=== PATIENT | female | born 1945 | race African-American/Black ===

== ENCOUNTER 2017-01-08 17:51 | Emergency (ER) | payer OTHER ==
[~2017-01-08] VITALS: Ht 167.6 cm; Wt 139.7 kg
[~2017-01-08 17:51] MED LIST: ACLI400A2 IH; ALPR0.5T6 PO; AMLO2.5T PO; ASPI-143 PO; ATEN50TA PO; CALC650T6 PO; CITA20SO PO; DABI75CA3 PO; FLUT1DIS5 IH; INSU100C SQ; INSU100V8 SQ; LOVA20TA2 PO; METF-620 PO; MULT-245 PO; NAPR500T8 PO; OLME20TA19 PO; PANT40TA5 PO; TRAZ100T12 PO
[2017-01-08 19:36] LABS: BASO # 0.1 x10^3/uL (0.0-0.2); BASO % 1 % (0-3); EOS % 1 % (0-3); HEMATOCRIT 39.6 % (36.0-47.0); HEMOGLOBIN 13.4 g/dL (12.0-15.5); LYMPH # 2.9 x10^3/uL (1.0-4.8); LYMPH % 36 % (24-48); MEAN CORPUSCULAR HEMOGLOBIN 29 pg (25-35); MEAN CORPUSCULAR HGB CONC 34 g/dL (31-37); MEAN CORPUSCULAR VOLUME 86 fL (79-100); MONO % 7 % (0-9); NEUT % 54 % (31-73); PLATELET COUNT 258 x10^3/uL (140-400); RED CELL DISTRIBUTION WIDTH 14.4 % (11.5-14.5); WHITE BLOOD COUNT 8.1 x10^3/uL (4.0-11.0)
--- NOTE | 2017-01-08 19:40 | PHYS DOC ---
Past Medical History Past Medical History: Cancer, COPD, Diabetes-Type II, High Cholesterol, Hypertension, [place], Other Additional Past Medical Histor: LYPHEDEMA, BREAST, INSOMNIA Past Surgical History: Appendectomy, Cholecystectomy, Hysterectomy, Other Additional Past Surgical Histo: PARTIAL, STENTS, CATARACT, RT MASECTOMY Alcohol Use: Rarely Drug Use: None Adult General Chief Complaint Chief Complaint: CHEST PAIN HPI HPI Patient is a 71 year old AA female with history of CAD, hypertension, dyslipidemia, diabetes who presents with intermittent left parasternal chest pain radiating to her back since last evening. Symptoms are worse with exertion and at night. They're associated with nausea but not shortness of breath or sweats. Symptoms are improved with nitroglycerin but have not completely resolved. Symptoms are currently low-grade described 1 or 2 out of 10. Patient denies abdominal pain, vomiting, flank pain, leg pain and swelling. No history of DVT or PE. Patient did not take her medications today because she did not feel well. Patient's clinical lab scientist is Dr. Bone who practices at [place]. Patient states she is scheduled for a chemical stress test on Wednesday. Review of Systems Review of Systems ROS as per HPI. Current Medications Current Medications Current Medications Medications (Trade) Dose Ordered Sig/Silver Start Time Stop Time Status Last Admin Dose Admin Aspirin (Children'S Aspirin) 324 mg 1X ONCE 01/08/17 19:45 01/08/17 19:46 DC 01/08/17 19:51 324 MG Famotidine (Pepcid) 20 mg 1X ONCE 01/08/17 19:45 01/08/17 19:46 DC 01/08/17 19:51 20 MG Nitroglycerin (Nitrostat) 0.4 mg PRN Q5MIN PRN 01/08/17 19:45 01/09/17 00:14 DC 01/08/17 19:53 0.4 MG Sodium Chloride 1,000 ml @ 1,000 mls/hr 1X ONCE 01/08/17 20:15 01/08/17 21:14 DC 01/08/17 20:24 1,000 MLS/HR Allergies Allergies Allergies Coded Allergies Type Severity Reaction Last Updated Verified No Known Drug Allergies 02/21/15 No Physical Exam Physical Exam Constitutional: Well developed, well nourished, no acute distress, non-toxic appearance. [] HENT: Normocephalic, atraumatic, bilateral external ears normal, oropharynx moist, no oral exudates, nose normal. [] Eyes: PERRLA, EOMI, conjunctiva normal, no discharge. [] Neck: Normal range of motion, no tenderness, supple, no stridor. [] Cardiovascular:Heart rate regular rhythm, no murmur, 1+ peripheral edema [] Lungs & Thorax: Bilateral breath sounds clear to auscultation [] Abdomen: Bowel sounds normal, soft, no tenderness, no masses, no pulsatile masses. [] Skin: Warm, dry. [] Back: No tenderness, no CVA tenderness. [] Extremities: No tenderness, no cyanosis, no clubbing, ROM intact, no edema. [] Neurologic: Alert and oriented, normal motor function, normal sensory function, no focal deficits noted. [] Psychologic: Affect normal, judgement normal, mood normal. [] Current Patient Data Vital Signs Vital Signs Date Time Temp Pulse Resp B/P (MAP) Pulse Ox O2 Delivery O2 Flow Rate FiO2 01/08/17 23:30 72 16 149/70 (96) 96 Room Air 01/08/17 20:48 2.0 01/08/17 18:35 98.3 98.3 Lab Values Laboratory Tests Test 01/08/17 18:35 White Blood Count 8.1 x10^3/uL (4.0-11.0) Red Blood Count 4.60 x10^6/uL (3.50-5.40) Hemoglobin 13.4 g/dL (12.0-15.5) Hematocrit 39.6 % (36.0-47.0) Mean Corpuscular Volume 86 fL (79-100) Mean Corpuscular Hemoglobin 29 pg (25-35) Mean Corpuscular Hemoglobin Concent 34 g/dL (31-37) Red Cell Distribution Width 14.4 % (11.5-14.5) Platelet Count 258 x10^3/uL (140-400) Neutrophils (%) (Auto) 54 % (31-73) Lymphocytes (%) (Auto) 36 % (24-48) Monocytes (%) (Auto) 7 % (0-9) Eosinophils (%) (Auto) 1 % (0-3) Basophils (%) (Auto) 1 % (0-3) Neutrophils # (Auto) 4.4 x10^3uL (1.8-7.7) Lymphocytes # (Auto) 2.9 x10^3/uL (1.0-4.8) Monocytes # (Auto) 0.6 x10^3/uL (0.0-1.1) Eosinophils # (Auto) 0.1 x10^3/uL (0.0-0.7) Basophils # (Auto) 0.1 x10^3/uL (0.0-0.2) D-Dimer (Jessa) 0.32 ug/mlFEU (0.00-0.50) Sodium Level 141 mmol/L (136-145) Potassium Level 3.5 mmol/L (3.5-5.1) Chloride Level 102 mmol/L (98-107) Carbon Dioxide Level 32 mmol/L (21-32) Anion Gap 7 (6-14) Blood Urea Nitrogen 9 mg/dL (7-20) Creatinine 0.7 mg/dL (0.6-1.0) Estimated GFR (Cockcroft-Gault) 100.4 BUN/Creatinine Ratio 13 (6-20) Glucose Level 143 mg/dL (70-99) H Calcium Level 9.4 mg/dL (8.5-10.1) Total Bilirubin 0.5 mg/dL (0.2-1.0) Aspartate Amino Transferase (AST) 30 U/L (15-37) Alanine Aminotransferase (ALT) 38 U/L (14-59) Alkaline Phosphatase 86 U/L (46-116) Troponin I Quantitative < 0.017 ng/mL (0.000-0.055) Total Protein 7.2 g/dL (6.4-8.2) Albumin 3.6 g/dL (3.4-5.0) Albumin/Globulin Ratio 1.0 (1.0-1.7) Lipase 127 U/L (73-393) Laboratory Tests 01/08/17 18:35 Laboratory Tests 01/08/17 18:35 EKG EKG [] Radiology/Procedures Radiology/Procedures [Chest x-ray: No acute cardiopulmonary disease] Course & Med Decision Making Course & Med Decision Making Pertinent Labs and Imaging studies reviewed. (See chart for details) Patient is high risk for acute coronary syndrome. Patient offered admission for evaluation of chest pain cardiac stimulation. Patient declines admission. She states she is symptom-free and prefers to follow-up with her outpatient clinical lab scientist with scheduled stress test is Wednesday. She verbalizes understanding that she has had an increased risk of delayed diagnosis, treatment , permanent disability and . She agrees to return to the ED should her chest pain return. Dragon Disclaimer Dragon Disclaimer This electronic medical record was generated, in whole or in part, using a voice recognition dictation system. Departure Departure Impression: Primary Impression: Chest pain Disposition: HOME, SELF-CARE Condition: STABLE Referrals: KODAK POLK MD (PCP) Patient Instructions: Chest Pain (Nonspecific), [id number] Additional Instructions: You were evaluated in the emergency department for chest pain. EKG, lab work and chest x-ray were performed and are normal. The exact cause of your symptoms has not been determined but may be heart related. Please take daily aspirin and continue all your home medications. Follow-up with your clinical lab scientist for outpatient stress test as scheduled on Wednesday. In the meantime, if you develop new or worsening symptoms, return to emergency department. NADIA LOERA DO Jan 08, 2017 19:39
[2017-01-08] MEDS ORDERED: NITROGLYCERIN SUBLINGUAL 0.4 MG BOTTLE OF 25. SL PRN (19:45)
[2017-01-08] MEDS ORDERED: FAMOTIDINE 20 MG/2 ML VIAL IVP ONE (19:45)
[2017-01-08] MEDS ORDERED: ASPIRIN CHEWABLE 81 MG TABLET. PO ONE (19:45)
[2017-01-08 19:46] LABS: CALCIUM 9.4 mg/dL (8.5-10.1); CREATININE 0.7 mg/dL (0.6-1.0); GFR 100.4; POTASSIUM 3.5 mmol/L (3.5-5.1)
[2017-01-08 19:52] LABS: ALBUMIN 3.6 g/dL (3.4-5.0); TOTAL BILIRUBIN 0.5 mg/dL (0.2-1.0); TOTAL PROTEIN 7.2 g/dL (6.4-8.2)
[2017-01-08] MEDS ORDERED: IV NORMAL SALINE 1000ML BAG 1,000 ML IV ONE (20:15)
[2017-01-08 23:30] VITALS: BP 149/70
--- NOTE | 2017-01-09 08:49 | RAD ---
Examination: Single frontal view the chest History: History shortness of breath, chest pain Comparison: 03/12/2013 Findings: Low lung volumes and technique accentuates heart size and pulmonary vascularity. Mild linear bibasal lung atelectasis again identified. Impression: No acute cardiopulmonary findings.
--- NOTE | 2017-01-09 12:09 | EKG ---
[facility] [address] [place] [address] Test Date: 2017-01-08 Test Time: 17:57:19 Pat Name: AALIYAH PERES Department: Room: Gender: F Kitchen And Bath Designer: : 1945 Requested By: NADIA LOERA Order Number: [id number] Reading MD: Raphael Hightower Measurements Intervals Gladys Rate: 86 P: 90 VT: 178 QRS: 5 QRSD: 80 T: 54 QT: 358 QTc: 431 Interpretive Statements SINUS RHYTHM Electronically Signed On 01-12-2017 9:53:57 CDT by Raphael Hightower
== END 2017-01-08 23:32 | disposition home or self-care (01) ==
LOC: ER 17:51
DX: R07.89 Other chest pain (principal); R11.0 Nausea; J44.9 Chronic obstructive pulmonary disease, unspecified; E11.9 Type 2 diabetes mellitus without complications; E78.00 Pure hypercholesterolemia, unspecified; I25.2 Old myocardial infarction; I25.10 Atherosclerotic heart disease of native coronary artery without angina pectoris; I10 Essential (primary) hypertension; E78.5 Hyperlipidemia, unspecified
CPT/HCPCS: 36415; 71010; 80053; 83690; 84484; 85025; 85379; 93005; 96361; 96374; 99285; J7030; S0028

== ENCOUNTER → 2017-01-29 | Outpatient (CLI) | payer OTHER ==
[2017-01-08 23:30] VITALS: BP 149/70
--- NOTE | 2017-01-29 11:58 | RAD ---
Postmenopausal transabdominal and endovaginal pelvic ultrasound for pelvic pain. Patient has a history of a hysterectomy in 1979, and by history retains one ovary. Technique: Real-time grayscale ultrasound images of the pelvis are performed from both the transabdominal and endovaginal pelvic approach. The uterus is nonvisualized consistent with history of hysterectomy. No ovarian tissue is identified, though on endovaginal interrogation of the right adnexa, there is a 9 mm anechoic simple appearing cyst, which may be related to the right ovary. Given its small size and simple sonographic appearance, this is of doubtful clinical significance. No adnexal masses are seen, and there is no free fluid within the cul-de-sac. Impression: 1. Unremarkable postmenopausal, post hysterectomy pelvic ultrasound.
== END | disposition home or self-care (01) ==
LOC: US 08:04
PROVIDERS: ATTEND Physician Assistant
DX: R10.2 Pelvic and perineal pain (principal); Z90.710 Acquired absence of both cervix and uterus; N95.9 Unspecified menopausal and perimenopausal disorder
CPT/HCPCS: 76830; 76856

== ENCOUNTER → 2017-05-07 | Day surgery (SDC) | payer OTHER ==
[~2017-05-07] MED LIST changes: -ACLI400A2 IH; -ALPR0.5T6 PO; -AMLO2.5T PO; -ASPI-143 PO; -ATEN50TA PO; -CALC650T6 PO; -CITA20SO PO; -DABI75CA3 PO; -FLUT1DIS5 IH; -INSU100C SQ; -INSU100V8 SQ; +LIDOCAINE 1% PF 2 ML VIAL. ID; +LIDOCAINE 2% PF Vial for OR 5 ML VIAL.; -LOVA20TA2 PO; -METF-620 PO; +MIDAZOLAM HCL/PF 2 MG/2 ML VIAL. IV; -MULT-245 PO; -NAPR500T8 PO; -OLME20TA19 PO; -PANT40TA5 PO; +PROPOFOL 40 ML IV; -TRAZ100T12 PO; +fentaNYL PF VIAL 100 MCG/2 ML VIAL IV
[2017-05-07] MEDS: IV RINGERS,LACTATED 1000ML 1,000 ML IV (13:07)
[2017-05-07 13:10] LABS: POC GLUCOSE 132 mg/dL (70-99)
== END | disposition home or self-care (01) ==
LOC: ENDOS 12:26
DX: Z09 Encounter for follow-up examination after completed treatment for conditions other than malignant neoplasm (principal); Z86.010 Personal history of colon polyps; D12.3 Benign neoplasm of transverse colon; K64.0 First degree hemorrhoids; I25.10 Atherosclerotic heart disease of native coronary artery without angina pectoris; J44.9 Chronic obstructive pulmonary disease, unspecified; E11.9 Type 2 diabetes mellitus without complications; F41.9 Anxiety disorder, unspecified; F32.9 Major depressive disorder, single episode, unspecified; F17.200 Nicotine dependence, unspecified, uncomplicated; Z90.49 Acquired absence of other specified parts of digestive tract; Z90.710 Acquired absence of both cervix and uterus; Z86.39 Personal history of other endocrine, nutritional and metabolic disease; Z87.39 Personal history of other diseases of the musculoskeletal system and connective tissue
CPT/HCPCS: 45380; 82962; 88305; J2704

== ENCOUNTER → 2017-07-19 | Outpatient (CLI) | payer OTHER | END | disposition home or self-care (01) | LOC: SLPLAB 18:43 | DX: G47.33 Obstructive sleep apnea (adult) (pediatric) (principal) | CPT/HCPCS: 95810 ==

== ENCOUNTER → 2017-10-12 | Outpatient (CLI) | payer OTHER ==
[2017-10-12] MEDS: ZOLPIDEM 5 MG TABLET. PO (23:28)
== END | disposition home or self-care (01) ==
LOC: RT 18:29
DX: G47.33 Obstructive sleep apnea (adult) (pediatric) (principal); E66.9 Obesity, unspecified
CPT/HCPCS: 95811

== ENCOUNTER → 2018-07-05 | Outpatient (CLI) | payer OTHER ==
[2017-10-09 11:00] VITALS: BP 135/61
[~2018-07-05] MED LIST changes: +ACLI400A2 IH; +ALPR0.5T6 PO; +AMLO2.5T5 PO; +ASPI-143 PO; +ATEN50TA PO; +BISO5TAB2 PO; +CALC650T6 PO; +CITA20SO PO; +DABI75CA3 PO; +FLUT1DIS5 IH; +FURO-68 PO; +INSU100C SQ; +INSU100V8 SQ; -LIDOCAINE 1% PF 2 ML VIAL. ID; -LIDOCAINE 2% PF Vial for OR 5 ML VIAL.; +LOVA20TA2 PO; +METF10007 PO; -MIDAZOLAM HCL/PF 2 MG/2 ML VIAL. IV; +MULT-245 PO; +NAPR500T8 PO; +OLME20TA17 PO; +PANT40TA5 PO; -PROPOFOL 40 ML IV; +TIOT18CA IH; +TRAZ-86 PO; -fentaNYL PF VIAL 100 MCG/2 ML VIAL IV
--- NOTE | 2018-07-07 11:58 | RAD ---
MR#: [id number] Date of Study: 07/05/2018 Ordering Physician: FAVIAN CALLES, Referring Physician: FAVIAN CALLES, Tech: Judah Martines MBA, RDMS, RVT, RDCS, RTR APPROVED REPORT Patient Location : OUT-PATIENT Indications Lower Extremity Edema : Bilateral Greater Saphenous Veins (GSV) Significant venous relux noted in the LEFT GSV at the following levels : Superficial Femoral Junction Findings Bilateral greater and lesser saphenous veins on gardner scale images do not have any obvious evidence of thrombus. The right GSV measures 6.3 mm and has no reflux. The left GSV measures 7.6 mm and has no evidence of reflux. The bilateral lesser saphenous veins do not reveal any evidence of reflux. Critical Notification Critical Value: No <Conclusion> No evidence of reflux in the bilateral greater and lesser saphenous veins. Signed by : Raphael Hightower, Electronically Approved : 07/07/2018 11:57:53
== END | disposition home or self-care (01) ==
LOC: US 10:18
PROVIDERS: ATTEND Internal Medicine Cardiovascular Disease
DX: R60.0 Localized edema (principal)
CPT/HCPCS: 93970

== ENCOUNTER → 2019-11-28 | Outpatient (CLI) | payer MEDICARE ==
[2017-10-09 11:00] VITALS: BP 135/61
[~2019-11-28] MED LIST changes: -ACLI400A2 IH; +ACLI400A3 IH; -BISO5TAB2 PO; +BISO5TAB8 PO; -CITA20SO PO; +CITA20SO2 PO; -PANT40TA5 PO; +PANT40TA77 PO; +REGADENOSON 0.4 MG/5 ML DISP.SYRIN. IV ONE; +TRAZ-123 PO; -TRAZ-86 PO
--- NOTE | 2019-11-29 17:56 | CARD ---
MR#: [id number] Date of Study: 11/29/2019 Ordering Physician: FAVIAN CALLES, Referring Physician: FAVIAN CALLES, Tech: Janine Alves APPROVED REPORT EXAM: Two-dimensional and M-mode echocardiogram with Doppler and color Doppler. Other Information Quality : AverageHR: 55bpm Technically limited study due to body habitus. INDICATION COPD Cardiac Disease: CAD RISK FACTORS Hypertension Hyperlipidemia Diabetes 2D DIMENSIONS RVDd3.8 (2.9-3.5cm)Left Atrium(2D)3.5 (1.6-4.0cm) IVSd1.1 (0.7-1.1cm)Aortic Root(2D)2.6 (2.0-3.7cm) LVDd5.1 (3.9-5.9cm)LVOT Diameter2.1 (1.8-2.4cm) PWd0.9 (0.7-1.1cm)LVDs3.1 (2.5-4.0cm) FS (%) 38.5 %SV84.8 ml Aortic Valve AoV Peak Colton.114.1cm/sAoV VTI28.1cm AO Peak GR.5.2mmHgLVOT Peak Colton.107.1cm/s LVOT VTI 29.25cmAO Mean GR.3mmHg ROSELIA (VMAX)2.56uc7IGT (VTI)3.53cm2 Mitral Valve MV E Zwjrsfzt33.8cm/sMV DECEL KHWD508vx MV A Dwofsafd85.4cm/sMV E Mean Gr.2mmHg MV PZR90mvG/A Ratio1.0 MVA (PHT)3.24cm2 TDI E/Lateral E'9.5E/Medial E'11.5 Pulmonary Valve PV Peak Ukvhoopd206.7cm/sPV Peak Grad.4mmHg Tricuspid Valve TR P. Rbanagib739ot/sRAP RFCHJYTY9ayNy TR Peak Gr.83pnYfXQHL55mcLm Pulmonary Vein S1 Smyatxho83.1cm/sD2 Gvapiuyq16.0cm/s PVa crkxyibs888etue LEFT VENTRICLE The left ventricle is normal size. There is normal left ventricular wall thickness. The left ventricu lar systolic function is normal and the ejection fraction is within normal range. The Ejection Fracti on is 50-55%. There is normal LV segmental wall motion. Transmitral Doppler flow pattern is Grade II- pseudonormal filling dynamics. RIGHT VENTRICLE The right ventricle is normal size. There is normal right ventricular wall thickness. The right ventr icular systolic function is normal. ATRIA The left atrium size is normal. The right atrium size is normal. The interatrial septum is intact wit h no evidence for an atrial septal defect or patent foramen ovale as noted on 2-D or Doppler imaging. AORTIC VALVE The aortic valve is thickened but opens well. Doppler and Color Flow revealed no significant aortic r egurgitation. Calculated aortic valve area is 3.57 cm2 with maximum pressure gradient of 6 mmHg and m deedee pressure gradient of 3 mmHg. There is no significant aortic valvular stenosis. MITRAL VALVE The mitral valve is normal in structure and function. There is no evidence of mitral valve prolapse. There is no mitral valve stenosis. Doppler and Color-flow revealed trace mitral regurgitation. TRICUSPID VALVE The tricuspid valve is normal in structure and function. Doppler and Color Flow revealed trace tricus pid regurgitation with an estimated PAP of 32 mmHg. There is no tricuspid valve stenosis. PULMONIC VALVE The pulmonic valve is not well visualized. Doppler and Color Flow revealed no pulmonic valvular regur gitation. GREAT VESSELS The aortic root is normal in size. The IVC is normal in size and collapses >50% with inspiration. PERICARDIAL EFFUSION There is no evidence of significant pericardial effusion. Critical Notification Critical Value: No <Conclusion> The left ventricle is normal size. The left ventricular systolic function is normal and the ejection fraction is within normal range. The Ejection Fraction is 50-55%. Doppler and Color Flow revealed no significant aortic regurgitation. Calculated aortic valve area is 3.57 cm2 with maximum pressure gradient of 6 mmHg and mean pressure g radient of 3 mmHg. There is no significant aortic valvular stenosis. Doppler and Color-flow revealed trace mitral regurgitation. Doppler and Color Flow revealed trace tricuspid regurgitation with an estimated PAP of 32 mmHg. Signed by : Osmin Rolon MD Electronically Approved : 11/29/2019 17:55:44
--- NOTE | 2019-11-30 12:36 | RAD ---
MR#: [id number] Date of Study: 11/29/2019 Ordering Physician: FAVIAN CALLES, Referring Physician: CATE NARVAEZ Tech: CHRISTIN Frazier, ARRT (R) (N) APPROVED REPORT Test Type: Pharmacological Stress Nurse/Tech: Paula Mccain RN Test Indications: CAD, CP Cardiac History: Hypertension, COPD, [place] (1993), on ASA Medications: See Electronic Medical Record Medical History: See Electronic Medical Record Resting ECG: SB w/ PAC, hitched up J point Resting Heart Rate: 52 bpm Resting Blood Pressure: 152/61mmHg Pretest Chest Pain: NoneNo chest pain Nurse/Tech Notes Dimished LS, S1S2 Consent: The procedure was explained to the patient in lay terms. Informed consent was witnessed. Nils eout was entered into [employer]. History and Stress Test performed by Paula Mccain, RN Pharm. Details Pharmacologic stress testing was performed using 0.4mg per 5ml of regadenoson given intravenously ove r 7-10 seconds. Stress Symptoms No chest pain, Pt stated that wierd feeling on above breast, close to neck POST EXERCISE Reason for Termination: Infusion complete Max HR: 100 bpm Max Blood Pressure: 167/59mmHg Chest Pain: No. Arrhythmia: No. ST Change: No. no changes from the resting EKG INTERPRETATION Stress EKG Conclusion: The resting EKG shows a sinus rhythm and mild nonspecific ST-T wave changes. The stress EKG shows no significant changes from baseline. No EKG evidence of stress-induced ischemia. Imaging Protocol IMAGE PROTOCOL: Rest Tc-99m/stress Tc-99m 2 days Rest: Stress: Viability: Radiopharm.Tc99m CgctlgaaoRi13f Sestamibi Osqw30qDi 33mCi Img Date 11/28/2019 11/29/2019 Inj-Img Cqkq50rkh. 60min. Rest Admin Site:IV - Left AntecubitalAdministrator:CHRISTIN Frazier, ARRT (R)(N) Stress Admin Site: IV - Left AntecubitalAdministrator: CHRISTIN Frazier, ARTUROT (R)(N) STRESS DATA End Diast. Vol.114.0mlLVEDV index BSA46.0ml End Syst. Vol.36.0mlLVESV index BSA14.0ml Myocardial Qksl500.0gEject. Dvfvyxps76.0% Stress Scores Regional WT0.00Summed WT6.00 Regional WM0.00Summed WM4.00 LV Perfusion The stress images show a mild inferior wall defect. The rest images showed no significant defects. Nuclear imaging shows a small area of reversible ischemia in the inferior wall on a technically diffi cult study. Wall Motion Left ventricular systolic function is normal with no regional wall motion abnormalities, a TID of 1.1 3 and an ejection fraction of 70%. LV Perf. Quant 17 Seg. SSS9.00 17 Seg. SRS2.00 17 Seg. SDS7.00 Stress Defect Extent (% LAD)20.00Rest Defect Extent (% LAD)1.30Rev. Defect Extent (% LAD)19.40 Stress Defect Extent (% LCX) 12.50Rest Defect Extent (% LCX)0.00Rev. Defect Extent (% LCX)12.50 Stress Defect Extent (% RCA)13.30Rest Defect Extent (% RCA)6.70Rev. Defect Extent (% RCA)8.90 Stress Defect Extent (% MELISSA)21.10Rest Defect Extent (% MELISSA)3.90Rev. Defect Extent (% MELISSA)19.10 Conclusion 1. No EKG evidence of stress-induced ischemia. 2. Nuclear imaging shows a small area of reversible ischemia in the inferior wall on a technically di fficult study. 3. Left ventricular systolic function is normal with an ejection fraction of 70% and a TID of 1.13. 4. Moderate risk Lexiscan nuclear stress test. Signed by : Osmin Rolon MD Electronically Approved : 11/30/2019 12:36:10
== END | disposition home or self-care (01) ==
LOC: NM 08:08
PROVIDERS: ATTEND Internal Medicine Cardiovascular Disease
DX: I25.119 Atherosclerotic heart disease of native coronary artery with unspecified angina pectoris (principal); I25.2 Old myocardial infarction; I10 Essential (primary) hypertension; J44.9 Chronic obstructive pulmonary disease, unspecified
CPT/HCPCS: 78452; A9500; 93017; 93306; J2785

== ENCOUNTER → 2019-12-14 | Outpatient (CLI) | payer MEDICARE ==
[2017-10-09 11:00] VITALS: BP 135/61
[~2019-12-14] MED LIST changes: +ALBU2.5V8 IH; +AMLO10TA4 PO; +ASPI-630 PO; +DIPH25CA58 PO; +FLUT9.9S NS; +LOSA100T14 PO; +LUBI8CAP4 PO; -REGADENOSON 0.4 MG/5 ML DISP.SYRIN. IV ONE; +SERT100T PO; +UMEC62.5 IH
== END ==
LOC: LAB 13:36
PROVIDERS: ATTEND Internal Medicine Cardiovascular Disease
DX: Z01.818 Encounter for other preprocedural examination (principal); Z11.59 Encounter for screening for other viral diseases; R07.9 Chest pain, unspecified
CPT/HCPCS: U0003-CS

== ENCOUNTER 2019-12-19 08:59 | Outpatient (CLI) | payer MEDICARE ==
[2019-12-19] VITALS (11 sets, daily range): BP systolic 142–180; BP diastolic 60–110
[~2019-12-19] VITALS: Ht 167.6 cm; Wt 139.7 kg
[~2019-12-19 08:59] MED LIST changes: -ALBU2.5V8 IH; -AMLO10TA4 PO; -ASPI-630 PO; -DIPH25CA58 PO; -FLUT9.9S NS; -LOSA100T14 PO; -LUBI8CAP4 PO; -SERT100T PO; -UMEC62.5 IH
[2019-12-19] MEDS ORDERED: IODIXANOL 320 MG/ML 100 ML VIAL. ONE (09:26)
[2019-12-19] MEDS ORDERED: LIDOCAINE 1% PF 2 ML VIAL. ONE (09:26)
[2019-12-19 09:44] LABS: HEMATOCRIT 37.5 % (36.0-47.0); HEMOGLOBIN 12.9 g/dL (12.0-15.5); RED BLOOD COUNT 4.36 x10^6/uL (3.50-5.40); RED CELL DISTRIBUTION WIDTH 14.3 % (11.5-14.5); WHITE BLOOD COUNT 8.5 x10^3/uL (4.0-11.0)
[2019-12-19] MEDS ORDERED: SERT100T PO (09:48)
[2019-12-19] MEDS ORDERED: ALBU2.5V8 IH (09:48)
[2019-12-19] MEDS ORDERED: DIPH25CA58 PO (09:48)
[2019-12-19] MEDS ORDERED: FLUT9.9S NS (09:48)
[2019-12-19] MEDS ORDERED: LUBI8CAP4 PO (09:48)
[2019-12-19] MEDS ORDERED: ASPI-630 PO (09:48)
[2019-12-19] MEDS ORDERED: LOSA100T14 PO (09:48)
[2019-12-19] MEDS ORDERED: AMLO10TA4 PO (09:48)
[2019-12-19] MEDS ORDERED: UMEC62.5 IH (09:48)
[2019-12-19 09:50] LABS: CALCIUM 9.1 mg/dL (8.5-10.1); CREATININE 0.8 mg/dL (0.6-1.0); GFR 85.6; POTASSIUM 3.9 mmol/L (3.5-5.1)
[2019-12-19 09:51] LABS: PROTHROMBIN TIME PATIENT 12.9 SEC (11.7-14.0)
--- NOTE | 2019-12-19 10:35 | PDOC ---
MODERATE SEDATION ASSESSMENT RISKS/ALTERNATIVES Risks/Alternatives Risks and alternatives of this type of sedation and procedure discussed with: RISK/ALTERNATIVES: Patient H & P ON CHART H & P H & P on chart and reviewed for co-morbid conditions and appropriate labs. H&P ON CHART: Yes STATUS PREG STATUS ASSESSED: N/A MEDS/ALLERGIES REVIEWED Meds/Allergies Reviewed Medications and Allergies including time and route of recently administered narcotics and sedatives. MEDS/ALLERGIES REVIEWED: Yes ASA RATING ASA RATING: III AIRWAY ASSESSMENT Airway Assessment Airway patency, oral function limitations, presence of caps, crowns, dentures, partials, and ability to extend neck assessed. AIRWAY ASSESSMENT: Yes MALLAMPATI SCORE MALLAMPATI SCORE: II PRE-SEDATION ASSESSMENT PRE-SEDATION ASSESSMENT: Yes FAVIAN CALLES MD Dec 19, 2019 10:35
[2019-12-19] MEDS ORDERED: fentaNYL PF VIAL 100 MCG/2 ML VIAL ONE (10:42)
[2019-12-19] MEDS ORDERED: VERAPAMIL 5 MG/2 ML VIAL. ONE (10:42)
[2019-12-19] MEDS ORDERED: MIDAZOLAM HCL/PF 2 MG/2 ML VIAL. ONE (10:42)
[2019-12-19] MEDS ORDERED: HEPARIN for IV BOLUS 10,000 UNIT/10 ML VIAL. ONE (10:42)
[2019-12-19] MEDS ORDERED: NITROGLYCERIN 200 MCG/2 ML SYRINGE FOR CATH/VASC LAB. ONE (10:43)
[2019-12-19] MEDS ORDERED: NITROGLYCERIN 200 MCG/2 ML SYRINGE FOR CATH/VASC LAB. IART ONE (11:15)
[2019-12-19] MEDS ORDERED: VERAPAMIL 5 MG/2 ML VIAL. IART ONE (11:15)
[2019-12-19] MEDS ORDERED: MIDAZOLAM HCL/PF 2 MG/2 ML VIAL. IV ONE (11:15)
[2019-12-19] MEDS ORDERED: CONTRAST GIVEN. MC PRN (11:15)
[2019-12-19] MEDS ORDERED: LIDOCAINE 1% PF 2 ML VIAL. INJ ONE (11:15)
[2019-12-19] MEDS ORDERED: IODIXANOL 320 MG/ML 100 ML VIAL. IART ONE (11:15)
[2019-12-19] MEDS ORDERED: HEPARIN for IV BOLUS 10,000 UNIT/10 ML VIAL. IART ONE (11:15)
[2019-12-19] MEDS ORDERED: fentaNYL PF VIAL 100 MCG/2 ML VIAL IV ONE (11:15)
[2019-12-19] MEDS ORDERED: IV 1/2 NORMAL SALINE 1,000 ML IV SCH (11:39)
--- NOTE | 2019-12-19 11:53 | CARD ---
MR#: [id number] Date of Study: 12/19/2019 Ordering Physician: FAVIAN CALLES, Referring Physician: FAVIAN CALLES Tech: FAITH ZAMUDIO APPROVED REPORT Technologist: FAITH ZAMUDIO Nurse: Devi Martinez R.N. Procedure(s) performed: Left heart catheterization, selective coronary angiography via right transrad ial approach FluorTime: 17.6 min Dose: 94.21 Gycm2 Contrast 100cc's Visi Sedation Time: 42 min INDICATION The indication(s) include : Chest pain and positive stress test in a patient with known history of co ronary disease. [facility] Clinical Frailty Scale [facility] Clinical Frailty Scale: Mildly Frail Heart Failure Heart Failure: No PROCEDURE NARRATIVE After explaining the risks, benefits and alternative options, informed consent was obtained from heidi ent. Patient was brought to the cardiac Automatic Outsole Cutter and right wrist was prepped and draped in the usual fashion after confirming a positive modified Jose's test. Arterial access was obtained in the [facility] t radial artery and a 6 Cuban sheath was inserted. Initial attempts to engage the left and right co ronary arteries using 6 Cuban Michael catheter were unsuccessful. The left main coronary artery was t hen engaged with a 6 Cuban JL 3.5 catheter and selective angiography was performed. Attempts to eng age the right coronary artery using 6 Cuban JR4 catheter was again unsuccessful. This was engaged f inally with a 6 Cuban AR-1 catheter and selective angiography was performed. LVEDP and transaortic gradients were measured. Patient tolerated the procedure well. Hemostasis was achieved using TR ban d. There were no immediate complications. The following findings were noted. FINDINGS 1. Hemodynamics: Left ventricular end-diastolic pressure of 19 mmHg. No pullback gradient across th e aortic valve. 2. Coronary angiography: a. The left main coronary artery arose from the left sinus of Valsalva, gave rise to the left anteri or descending and left circumflex arteries and did not show any significant stenosis. b. The left anterior descending artery showed 30% in-stent restenosis in the mid segment. Just dist al to the stent there was 40% stenosis noted. The very distal/apical segment showed moderate diffuse disease. c. The left circumflex artery did not show any significant stenosis. d. The right coronary artery was a large and dominant vessel arising from the right sinus of Valsalv a that showed 30% stenosis in the proximal segment of the posterior descending branch. Conclusion Nonobstructive coronary disease with patent previously placed stent in the left anterior descending a rtery. Recommendations Medical Therapy Signed by : Favian Calles, Electronically Approved : 12/19/2019 11:52:25
--- NOTE | 2019-12-19 14:28 | NUR ---
Discharge Note: AALIYAH PERES Discharge instructions and discharge home medications reviewed with Patient and a copy given. All questions have been answered and understanding verbalized. The following instructions and handouts were given: radial site care and moderate sedation Discontinued lines and drains: Peripheral IV intact. Patient discharged to Home or Self Care withSpousevia Wheelchair
== END 2019-12-19 14:30 | disposition home or self-care (01) ==
LOC: CCL 08:59
PROVIDERS: ATTEND Internal Medicine Cardiovascular Disease
DX: R07.89 Other chest pain (principal); I10 Essential (primary) hypertension; E11.9 Type 2 diabetes mellitus without complications; J44.9 Chronic obstructive pulmonary disease, unspecified; G47.33 Obstructive sleep apnea (adult) (pediatric); Z88.8 Allergy status to other drugs, medicaments and biological substances; Z87.891 Personal history of nicotine dependence; Z98.890 Other specified postprocedural states; Z79.899 Other long term (current) drug therapy
CPT/HCPCS: 36415; 80048; 85027; 85610; 93458; 99152; 99153; C1769; C1892; J1644; J2250; J3010; J3490; Q9967

== ENCOUNTER → 2020-05-24 | Outpatient (CLI) | payer MEDICARE ==
[2019-12-19 14:19] VITALS: BP 175/78
[~2020-05-24] MED LIST changes: +ALBU2.5V8 IH; +AMLO10TA4 PO; +ASPI-630 PO; +DIPH25CA58 PO; +FLUT9.9S NS; +LOSA100T14 PO; +LUBI8CAP4 PO; +SERT100T PO; +UMEC62.5 IH
--- NOTE | 2020-05-28 15:48 | RAD ---
EXAM: CT Chest without IV contrast INDICATION: Reason: COPD / Spl. Instructions: / History: TECHNIQUE: Multi-detector row CT images were acquired from the thoracic inlet through the upper abdo men without the use of IV contrast. Sagittal and coronal images were acquired from the transaxial olena a. All CT scans performed at this facility utilize dose optimization techniques as appropriate to the exam, including the following: Automated exposure control and adjustment of the mA and/or KV accordi ng to patient size (this includes techniques or standardized protocols for targeted exams where dose is indication/reason for exam). COMPARISON: None FINDINGS: The absence of IV contrast limits evaluation of soft tissue pathology. CARDIOVASCULAR: Dense coronary calcifications are present, representing three-vessel disease. MEDIASTINUM & LAUREN: No adenopathy or masses. LUNGS: Lungs show very subtle subpleural reticular densities in the anterior right middle and right u pper lobes. Platelike atelectasis is also present in the left midlung and left lower lobes. PLEURAL SPACE: No pleural effusions or pneumothorax. OSSEOUS & SOFT TISSUE: Right mastectomy. ABDOMEN: The visualized portions of the upper abdomen are unremarkable. IMPRESSION: 1. Right mastectomy and subpleural radiation change in the anterior right lung but no findings of chr onic obstructive lung disease demonstrated on noncontrast chest CT. 2. Dense multivessel coronary calcifications. No cardiomegaly or pericardial effusion. No findings of pulmonary edema. Electronically signed by: Jessica Shin MD (05/28/2020 3:46 PM) [id number]
== END ==
LOC: CT 10:24
PROVIDERS: ATTEND Internal Medicine Pulmonary Disease
DX: R91.8 Other nonspecific abnormal finding of lung field (principal); Z90.11 Acquired absence of right breast and nipple
CPT/HCPCS: 71250

== ENCOUNTER → 2020-10-03 | Day surgery (SDC) | payer MEDICARE ==
[~2020-10-03] VITALS: Ht 167.6 cm; Wt 297.0 kg
[~2020-10-03] MED LIST changes: -CALC650T6 PO; +CALC650T7 PO; +GLYCOPYRROLATE 1 MG/5 ML VIAL. ONE; +INSU100V13 SQ; +IV RINGERS,LACTATED 1000ML 1,000 ML IV ONE; +LIDOCAINE 2% PF 5 ML VIAL. ONE; +PROPOFOL 10 MG/ML (20ML) VIAL. IV ONE; +ePHEDrine PF IN SALINE 50 MG/10 ML SYRINGE. IV ONE
[2020-10-03 11:28] VITALS: BP 186/70
[2020-10-03 13:20] VITALS: BP 172/78
--- NOTE | 2020-10-08 15:17 | PATHOLOGY ---
[facility] Accession Number: [id number] . 01 Material submitted: . colon - ASCENDING COLON POLYP. Modifiers: ascending . 01 Clinical history: . HISTORY OF COLON POLYPS COLONOSCOPY . 02 Diagnosis: Colon biopsies, ascending colon polyp: - Tubular adenoma. (LEONIE:jerome; 10/08/2020) [facility] 10/08/2020 1330 Local . 02 Comment: There is no high-grade dysplasia or evidence of malignancy. (LEONIEM:jerome; 10/08/2020) . 02 Electronically signed: . Ferny Jackson MD, Pathologist NPI- [id number] . 01 Gross description: . Received in formalin labeled "Karen Mcmullen, ascending colon polyp" is a phillips-brown nodular mucosal polyp measuring 1.5 x 1.2 x 1.0 cm. The possible margin is inked and the polyp is sectioned and submitted in A1. Also present within the container are multiple fragments of phillips-yellow friable possible soft tissue or mucinous material measuring in aggregate 1.3 x 0.5 x 0.1 cm, which are filtered and submitted in A2. ([facility]; 10/05/2020) [facility] 10/05/2020 1505 Local . 02 Pathologist provided ICD-10: D12.2 . 02 CPT . 270656 Specimen Comment: A courtesy copy of this report has been sent to [phone], [phone] Specimen Comment: 1917 Specimen Comment: Report sent to / DR JARAMILLO Performed at: [address], [place], [place] [id number] MD Harsha Marques MD Phone: [phone] Performed at: 02 [facility] [address], [place] [id number] MD Ferny Jackson MD Phone: [phone]
== END | disposition home or self-care (01) ==
LOC: ENDOS 10:58
PROVIDERS: ATTEND Internal Medicine Gastroenterology
DX: Z12.11 Encounter for screening for malignant neoplasm of colon (principal); K64.0 First degree hemorrhoids; D12.2 Benign neoplasm of ascending colon; K63.89 Other specified diseases of intestine; I25.10 Atherosclerotic heart disease of native coronary artery without angina pectoris; I10 Essential (primary) hypertension; E78.00 Pure hypercholesterolemia, unspecified; E66.9 Obesity, unspecified; M19.90 Unspecified osteoarthritis, unspecified site; E11.9 Type 2 diabetes mellitus without complications; G47.30 Sleep apnea, unspecified; F41.9 Anxiety disorder, unspecified; F32.9 Major depressive disorder, single episode, unspecified; Z86.010 Personal history of colon polyps; Z87.891 Personal history of nicotine dependence; Z79.82 Long term (current) use of aspirin; Z79.4 Long term (current) use of insulin; Z79.899 Other long term (current) drug therapy; Z90.710 Acquired absence of both cervix and uterus; Z90.49 Acquired absence of other specified parts of digestive tract; Z98.890 Other specified postprocedural states
CPT/HCPCS: 45385; 88305; J2704; J3490

== ENCOUNTER → 2021-05-22 | Outpatient (CLI) | payer MEDICARE ==
[2020-10-03 13:20] VITALS: BP 172/78
[~2021-05-22] MED LIST changes: -GLYCOPYRROLATE 1 MG/5 ML VIAL. ONE; -IV RINGERS,LACTATED 1000ML 1,000 ML IV ONE; -LIDOCAINE 2% PF 5 ML VIAL. ONE; +PERFLUTREN PROTEIN-A MICROSPHR 0.22 MG/ML 3 ML VIAL. IV ONE; -PROPOFOL 10 MG/ML (20ML) VIAL. IV ONE; -ePHEDrine PF IN SALINE 50 MG/10 ML SYRINGE. IV ONE
--- NOTE | 2021-05-23 11:02 | CARD ---
MR#: [id number] Date of Study: 05/22/2021 Ordering Physician: FAVIAN CALLES, Referring Physician: FAVIAN CALLES Tech: Samantha Suarez SHELBY APPROVED REPORT EXAM: Two-dimensional and M-mode echocardiogram with Doppler and color Doppler. Other Information Quality : Technically LimitedHR: 54bpm Rhythm : NSR INDICATION Dyspnea Cardiac Disease: CAD Echo Enhancing Agent Indication: Endocardial border delineation Agent/Amount Used: Optison 3mL RISK FACTORS Hypertension Obesity Hyperlipidemia Diabetes 2D DIMENSIONS RVDd3.6 (2.9-3.5cm)Left Atrium(2D)3.8 (1.6-4.0cm) IVSd1.1 (0.7-1.1cm)Aortic Root(2D)3.3 (2.0-3.7cm) LVDd4.7 (3.9-5.9cm)LVOT Diameter2.3 (1.8-2.4cm) PWd1.0 (0.7-1.1cm)LVDs2.9 (2.5-4.0cm) FS (%) 37.4 %SV69.1 ml LVEF(%)67.4 (>50%) Aortic Valve AoV Peak Colton.142.5cm/sAoV VTI34.5cm AO Peak GR.8.1mmHgLVOT Peak [place]ton.149.6cm/s AO Mean GR.3mmHgAVA (VMAX)4.50cm2 Mitral Valve MV E Pfjfstko747.9cm/sMV DECEL DYSA071gk MV A Ricuucpv667.5cm/sE/A Ratio1.0 Pulmonary Valve PV Peak Vpavcrfh614.4cm/s Tricuspid Valve TR P. Odyzonhx409xh/sTR Peak Gr.34mmHg LEFT VENTRICLE The left ventricle is normal size. There is borderline to mild concentric left ventricular hypertroph y. The left ventricular systolic function is normal. Estimated ejection fraction 65%. There is dylan l LV segmental wall motion. The left ventricular diastolic function and filling is normal for age. RIGHT VENTRICLE The right ventricle is normal size. There is normal right ventricular wall thickness. The right ventr icular systolic function is normal. ATRIA The left atrium size is normal. The right atrium size is normal. The interatrial septum is intact wit h no evidence for an atrial septal defect or patent foramen ovale as noted on 2-D or Doppler imaging. AORTIC VALVE The aortic valve is normal in structure and function. Doppler and Color Flow revealed no significant aortic regurgitation. There is no significant aortic valvular stenosis. MITRAL VALVE The mitral valve is normal in structure and function. There is no evidence of mitral valve prolapse. There is no mitral valve stenosis. Doppler and Color-flow revealed trace to mild mitral regurgitation . TRICUSPID VALVE The tricuspid valve is normal in structure and function. Doppler and Color Flow revealed mild tricusp id regurgitation. Estimated PAP 35 to 40 mmHg. There is no tricuspid valve stenosis. PULMONIC VALVE The pulmonary valve is normal in structure and function. Doppler and Color Flow revealed no pulmonic valvular regurgitation. GREAT VESSELS The aortic root is normal in size. The ascending aorta is normal in size. The IVC is normal in size a nd collapses >50% with inspiration. PERICARDIAL EFFUSION There is no evidence of significant pericardial effusion. Critical Notification Critical Value: No <Conclusion> The left ventricular systolic function is normal. Estimated ejection fraction 65%. There is normal LV segmental wall motion. Trace to mild mitral regurgitation. Mild tricuspid regurgitation. Estimated PAP 35 to 40 mmHg. There is no evidence of significant pericardial effusion. Signed by : Favian Calles, Electronically Approved : 05/23/2021 11:02:28
== END ==
LOC: ECHO 08:46
PROVIDERS: ATTEND Internal Medicine Cardiovascular Disease
DX: I08.1 Rheumatic disorders of both mitral and tricuspid valves (principal); I25.119 Atherosclerotic heart disease of native coronary artery with unspecified angina pectoris
CPT/HCPCS: C8929; Q9956